=== PATIENT | male | born 1965 | race Caucasian/White ===

== ENCOUNTER 2023-09-24 10:45 | Emergency (ER) | payer MEDICAID ==
[~2023-09-24] VITALS: Ht 175.3 cm; Wt 79.4 kg
[2023-09-24 10:50] VITALS: BP 133/80; PULSE 100; RESP 18; TEMP 98.3; O2SAT 97
[2023-09-24] MEDS: ACETAMINOPHEN EXTRA STRENGTH 500 MG TAB PO ONE (12:36)
[2023-09-24 12:52] LABS: BASOPHILS # (AUTO) 0.1 K/uL (0.00-0.22); BASOPHILS % (AUTO) 0.8 % (0.0-2.0); EOSINOPHILS # (AUTO) 0.3 K/uL (0-0.4); EOSINOPHILS % (AUTO) 3.7 % (0.0-4.0); HEMATOCRIT 46.4 % (36-52); HEMOGLOBIN 16.4 g/dL (12.0-18.0); LYMPHOCYTES # (AUTO) 2.1 K/uL (2.0-11.5); MEAN CORPUSCULAR HEMOGLOBIN 35 pg (27-31); MEAN CORPUSCULAR HGB CONC 35 g/dL (33-37); MEAN CORPUSCULAR VOLUME 100.3 fL (80-94); MONOCYTES % (AUTO) 10.7 % (1.7-9.3); NEUTROPHILS # (AUTO) 5.9 K/uL (1.8-7.7); NEUTROPHILS % (AUTO) 62.8 % (42.2-75.2); PLATELET COUNT (AUTO) 114 K/uL (140-450); RED BLOOD CELL COUNT(AUTO) 4.62 MIL/uL (4.20-6.10); RED CELL DISTRIBUTION WIDTH 14.2 % (11.6-13.7); WHITE BLOOD COUNT (AUTO) 9.4 K/uL (4.8-10.8)
[2023-09-24 12:59] LABS: ANION GAP 16.3 (8-16); CALCIUM 9.2 mg/dL (8.5-10.1); CARBON DIOXIDE 23.7 mmol/L (21-32); CREATININE 1.2 mg/dL (0.6-1.3)
[2023-09-24 13:04] VITALS: BP 145/80; PULSE 74; RESP 17; O2SAT 98
[2023-09-24 13:41] LABS: ALBUMIN 3.8 g/dL (3.4-5.0); BILIRUBIN,DIRECT 1.8 mg/dL (0.0-0.3); TOTAL BILIRUBIN 3.4 mg/dL (0.0-1.0); TOTAL PROTEIN, SERUM 8.3 g/dL (6.4-8.2)
== END 2023-09-24 13:06 | disposition home or self-care (01) ==
LOC: MED 10:45
DX: S09.90XA Unspecified injury of head, initial encounter (principal); X58.XXXA Exposure to other specified factors, initial encounter; Y93.89 Activity, other specified; Y92.830 Public park as the place of occurrence of the external cause; Y99.8 Other external cause status
CPT/HCPCS: 36415; 70450; 71046; 80048; 80076; 85025; 99284